=== PATIENT | female | born 1970 | race Caucasian/White ===

== ENCOUNTER 2018-09-19 08:37 | Emergency (ER) | payer BC, OTHER ==
--- NOTE | 2018-09-19 08:44 | UC ---
General HPI - HPI Summary HPI Summary: Patient is year old , who present today to the urgent care with for past days. Associated symptoms: No sick contacts . No skin rash. Denies any new soap, detergent , cosmetics, food or a possible exposure. Denies any fever, chills, cough chest pain or shortness of breath . No diaphoresis. Denies any abdominal pain , nausea or vomiting , diarrhea or constipation. There is no stridor, grunting or audible wheezing drooling, chest retraction or dehydration. Denies any conjunctival redness, irritation, increased lacrimation. Denies any grittiness Denies any radicular symptoms, numbness , tingling , incontinence, saddle anesthesia , motor or sensory disturbance. Patient tried over the counter medication without much relief. - History of Current Complaint Stated Complaint: COLD SYMP Time Seen by Provider: 09/19/18 08:40 Hx Obtained From: Patient Hx Last Menstrual Period: 10/04/16 - Allergy/Home Medications Allergies/Adverse Reactions: Allergies Allergy/AdvReac Type Severity Reaction Status Date / Time MS Sulfa Antibiotics Allergy Anaphylatic Verified 12/18/17 10:52 [Sulfa Antibiotics] Shock PMH/Surg Hx/FS Hx/Imm Hx Other History Of: Negative For: Anticoagulant Therapy - Surgical History Surgical History: Yes Surgery Procedure, Year, and Place: TONSILLECTOMY. PRECANCEROUS GROWTH ON HIP REMOVED AGE 16 - Family History Known Family History: Positive: None, Other - NONCONTIBUTORY - Social History Alcohol Use: None Alcohol Amount: former etoh overuse, "no addiction" per pt. Substance Use Type: None Smoking Status (MU): Current Every Day Smoker Type: Cigarettes Amount Used/How Often: 1/2 PPD - Immunization History Most Recent Tetanus Shot: <5 YEARS ( OF 08/13/15) Physical Exam - Summary Physical Exam Summary: Physical Exam: Const: Appears well. No signs of apparent distress present. Alert and oriented x 3. Musculo: Walks with a normal gait. Head/Face: Atraumatic, normocephalic on inspection. Eyes: EOMI and PERRLA in both eyes. Conjunctivae clear. No discharge noted ENT: Hearing normal, TM normal appearing bilaterally, non bulging , non erythematous . No tenderness on palpation / manipulation of Tragus. No mastoid tenderness. No tenderness to palpation on maxillary and frontal sinus. No pharyngeal erythema or exudates . Uvula is midline. No cervical or submandibular lymphadenopathy noted. Respiratory: Respirations are unlabored. Lungs clear to auscultation bilaterally, no wheezing , rhonchi or rales noted . CVS: Regular rate and Rhythm, S1S2 normal , no murmurs identified. Extremities: Peripheral circulation is grossly normal. Pulses 2+ Abdomen : Soft non tender , nondistended , Bowel sounds present . No guarding , rebound tenderness or rigidity noted. Skin: No lesions or rash located on the upper extremities or on the lower extremities. Neuro: Cranial nerves II to XII intact, motor and sensory intact. DTR Intact bilaterally. Mood is normal. Affect is normal. Course/Dx - Course Course Of Treatment: During the visit today, we obtained . We discussed the findings and further plan. I will prescribe the medication to the pharmacy . Patient expressed understanding . Discharge - Discharge Plan Referrals: Jocelyn Bonds MD [Primary Care Provider] - Additional Instructions: Please start taking the medication as prescribed to the pharmacy . Follow up with your primary care doctor in 2 days. Please follow up with .. for the consult Patients blood pressure slightly high in Urgent care today , plan follow up with PCP for better control Return to Urgent care / ER if symptoms get worse.
--- OUTSIDE RECORDS SUMMARY | 2018-09-19 08:44 | XMS REPORT | Continuity of Care Document ---
:1970 External Reference #:[id number] Author Name Willa Guy Care Team Providers Name Role Phone Jocelyn Bonds MD Primary Care Physician Unavailable Payers Date Identification Numbers Payment Provider Subscriber Onset: 2018 Policy Number: [id number] [facility] PayID: [id number] [address] [address] [place] [address] Expires: 2015 PayID: [id number] [facility] [address] [address] [place] [address] Effective: 2015 Policy Number: Cont: [facility] [id number] [facility] [place]: [id number] [id number] [facility] PayID: [id number] [place] [address] Expires: 07/05/2018 Policy Number: [id number] [facility] Ppo/Epo Toro Chu PayID: [id number] [address] [place] [address] Advance Directives Description No Information Available Problems Date Description Provider Status Onset: 07/31/2015 Bipolar disorder Anna Etienne NP Active Onset: 07/31/2015 Tobacco user Anna Etienne NP Active Onset: 09/14/2018 Binge drinker Jocelyn Bonds M.D. Active Onset: 07/31/2015 Alcohol abuse Anna Etienne NP Inactive Inactive: 09/14/2018 Family History Date Family Member(s) Observation Comments Father Aortic Aneurysm 80 Mother Depression 80 Siblings 1 Sister. Eating disorder. 50 Social History Type Date Description Comments Sex Unknown Marital Status Lives With Alone Occupation [employer] ETOH Use Rarely consumes Was drinking in alcohol excess, stopped in December 2015 Recreational Drug Use Denies Drug Use Tobacco Use Start: Unknown Patient is a current Quits for short smoker, smokes every periods, currently day smoking 10 cigarettes daily. Smoking Status Reviewed: 09/14/18 Patient is a current Quits for short smoker, smokes every periods, currently day smoking 10 cigarettes daily. Exercise Type/Frequency Exercises regularly Daily hiking with her dog. Allergies, Adverse Reactions, Alerts Date Description Reaction Status Severity Comments 07/31/2015 Sulfa Antibiotics Anaphylaxis Active Severe Medications Medication Date Status Form Strength Qnty SIG Indications Ordering Provider Nicotine Step 2 09/15/19 Active Patches 14mg/24HR 30uni once a day F17.210 Jocelyn 19 24HR esequiel Bonds M.D. Nicotine 09/15/19 Active Patches 7mg/24HR 28uni once a day F17.210 Jocelyn Transdermal 19 24HR Prem Alonso Step 3 MShyam Nicotine 08/02/19 Active Patches 7mg/24HR 14uni One patch Anna Transdermal 19 24HR ts daily for TALAT Etienne System Step 3 two weeks. Lorazepam 06/07/20 Active Tablets 0.5mg 30tab One tablet Anna 18 s once daily TALAT Etienne as needed Lamotrigine 03/24/20 Active Tablets 200mg 90tab take one Anna 18 s tablet by TALAT Etienne mouth once daily Thumb Splint 10/15/19 Active Misc 1unit thumb M79.644 Anna 18 s spica for TALAT Etienne right hand, wear during the day Aspir-81 Active Tablets 81mg 1 by mouth Unknown 00 DR every day Oxcarbazepine Active Tablets 150mg 1 tabs by Unknown 00 mouth every morning bid Vitamin B Active Tablets 1 by mouth Unknown Complex 00 every day Quetiapine Active Tablets 50mg 30tab One tablet Anna Fumarate 00 s QHS TALAT Etienne Gabapentin Active Capsules 300mg Take 2 Unknown 00 Capsules By Mouth Two Times Daily Nicotine 06/07/20 Hx Patches 14mg/24HR 14uni one patch Anna 18 - 24HR ts daily for TALAT Etienne 06/21/20 2 weeks 18 Nicotine Step 3 06/07/20 Hx Patches 7mg/24HR 14uni one patch Anna 18 - 24HR ts once daily TALAT Etienne 07/05/20 for two 18 weeks Ondansetron 04/30/20 Hx Tablets 8mg 20tab one tablet Anna 18 - Dispers s every 12 TALAT Etienne 05/05/20 hours as 18 needed. Nicotine 04/30/20 Hx Patches 21mg/24HR 28uni one patch Anna 18 - 24HR ts daily x 6 TALAT Etienne 06/07/20 weeks 18 Ondansetron 04/29/20 Hx Tablets 4mg 4tabs dissolve Anna 18 - Dispers one tablet TALAT Etienne 04/30/20 orally 18 every 8 hours as needed for nausea. Nicotine Step 3 12/03/19 Hx Patches 7mg/24HR 14uni One patch Anna 18 - 24HR ts once daily TALAT Etienne 04/30/20 for two 18 weeks Naproxen 10/15/19 Hx Tablets 500mg 30tab 1 tablet M54.9 Anna 18 - s with food TALAT Etienne 09/15/19 by mouth 19 twice a day Cipro 10/02/19 Hx Tablets 250mg 14tab one by Emilia 18 - s nouth Varn, 10/09/19 twice N.P. 18 daily for 7 days Eq Nicotine 08/15/19 Hx Patches 14mg/24HR 28uni Apply One Anna 18 - 24HR ts Patch TALAT Etienne 08/02/19 Topically 19 Once Daily For 6 Weeks Nicotine Step 2 05/12/20 Hx Patches 14mg/24HR 30uni one patch Anna 17 - 24HR ts daily x 6 TALAT Etienne 12/03/19 weeks 18 Nicotine 04/16/20 Hx Patches 21mg/24HR 28uni one patch Anna 17 - 24HR ts daily x 6 TALAT Etienne 05/12/20 weeks 17 Doxycycline 11/29/19 Hx Capsules 100mg 42cap si bid A69.20 Anna Monohydrate 17 - s x 21 days TALAT Etienne 12/23/19 17 Tramadol HCL 11/14/19 Hx Tablets 50mg 15tab 1-2 M79.1 Anna 17 - s tablets TALAT Etienne 09/15/19 every day 19 as needed for pain. Nicotine Step 2 08/13/19 Hx Patches 14mg/24HR 42uni one patch Anna 17 - 24HR ts daily x 6 Jaimie, PEDICURIST 04/16/20 weeks 17 Nicotine Step 3 08/13/19 Hx Patches 7mg/24HR 14uni one patch Anna 17 - 24HR ts daily x 2 TALAT Etienne 04/16/20 weeks 17 (after completing 14mg dose) Cyclobenzaprine 07/31/19 Hx Tablets 5mg 30tab take one Anna HCL 16 - s tablet by TALAT Etienne 07/30/19 mouth 17 every 8 hours prn. may take a second tablet if first not effetive. Chantix Starting 07/31/19 Hx Tablets 0.5mg X QS one 0.5 mg Z72.0 Anna Month Stephen 16 - 11 & 1 mg tab every TALAT Etienne 07/30/19 X 42 day for 3 17 days, one 0.5 mg tab twice a day for 4 days, one 1 mg tab bid every day after Vitamin D Hx Capsules 2000Unit take 1 by Unknown 00 - mouth a 09/15/19 day 19 Sertraline HCL Hx Tablets 50mg 1 by mouth Unknown 00 - every day 07/30/19 17 Metaxalone Hx Tablets 800mg take 1 Anna 00 - tablet 2 TALAT Etienne 07/31/19 times a 16 day as needed Lorazepam Hx Tablets 0.5mg 1 every 4 Unknown 00 - hours as Unknown needed anxiety Zolpidem Hx Tablets 10mg 1 tab by Unknown Tartrate 00 - mouth 09/15/19 every 19 night at bedtime as needed Lysine Hx Capsules 500mg 1 by mouth Unknown 00 - every day Unknown Ibuprofen Hx Tablets 600mg three Unknown 00 - times a 09/15/19 day 19 Medications Administered in Office Medication Date Status Form Strength Qnty SIG Indications Ordering Provider PPD Administered Injection Nurse Visit 8 A LIVAN Administered Injection AnnaGifty Horne NP Administered Injection Nurse Visit 5 C Immunizations Description No Information Available Vital Signs Date Vital Result Comment 09/14/2018 12:05pm Height 63.5 inches 5'3.50" Weight 163.00 lb Heart Rate 76 /min BP Systolic Sitting 108 mmHg BP Diastolic Sitting 73 mmHg Body Temperature 99.0 F O2 % BldC Oximetry 98 % BMI (Body Mass Index) 28.4 kg/m2 04/30/2018 10:27am Height 63.5 inches 5'3.50" Weight 154.00 lb Heart Rate 87 /min BP Systolic 113 mmHg BP Diastolic 77 mmHg Body Temperature 98.2 F O2 % BldC Oximetry 99 % BMI (Body Mass Index) 26.8 kg/m2 10/14/2017 11:22am Height 63.5 inches 5'3.50" Weight 149.25 lb Heart Rate 103 /min BP Systolic 122 mmHg BP Diastolic 82 mmHg Body Temperature 98.4 F O2 % BldC Oximetry 98 % BMI (Body Mass Index) 26.0 kg/m2 07/29/2017 8:43am Heart Rate 84 /min Respiratory Rate 16 /min Body Temperature 98.8 F 07/21/2017 10:38am Heart Rate 84 /min BP Systolic 100 mmHg BP Diastolic 70 mmHg Respiratory Rate 16 /min 01/07/2017 3:01pm Height 63.5 inches 5'3.50" Weight 155.00 lb Heart Rate 78 /min BP Systolic 106 mmHg BP Diastolic 70 mmHg Respiratory Rate 16 /min Body Temperature 98.7 F BMI (Body Mass Index) 27.0 kg/m2 11/28/2016 4:23pm Weight 158.50 lb Heart Rate 79 /min BP Systolic 120 mmHg BP Diastolic 80 mmHg Body Temperature 97.5 F O2 % BldC Oximetry 98 % 11/13/2016 9:03am Weight 162.00 lb Heart Rate 82 /min BP Systolic Sitting 112 mmHg BP Diastolic Sitting 80 mmHg Body Temperature 98.1 F O2 % BldC Oximetry 99 % 07/30/2016 1:16pm Height 63.5 inches 5'3.50" Weight 163.00 lb Heart Rate 88 /min BP Systolic 104 mmHg BP Diastolic 68 mmHg Body Temperature 99.0 F O2 % BldC Oximetry 97 % BMI (Body Mass Index) 28.4 kg/m2 07/31/2015 10:55am Weight 163.00 lb Heart Rate 92 /min BP Systolic Sitting 110 mmHg BP Diastolic Sitting 66 mmHg Respiratory Rate 15 /min Body Temperature 99.2 F O2 % BldC Oximetry 98 % Results Test Date Facility Test Result H/L Range Note Urine Culture And 10/02/2017 [facility] Urine Culture SEE RESULT [address] [place] [address] [phone] Lipid Profile 10/02/2017 [facility] Triglycerides 65 mg/dL 2 (Trig/Chol/HDL) [address] [place] [address] [phone] Cholesterol 183 mg/dL 3 HDL Cholesterol 75.1 mg/dL 4 LDL Cholesterol 95 mg/dL 5 Comp Metabolic Panel 10/02/2017 [facility] Sodium 138 mmol/L Low 139-[address] [place] [address] [phone] Potassium 4.1 mmol/L N 3.5-5.0 Chloride 104 mmol/L N 101-111 Co2 Carbon Dioxide 26 mmol/L N 22-32 Anion Gap 8 mmol/L N 2-11 Glucose 88 mg/dL N 70-100 Blood Urea Nitrogen 9 mg/dL N 6-24 Creatinine 0.77 mg/dL N 0.51-0.95 BUN/Creatinine Ratio 11.7 N 8-20 Calcium 9.3 mg/dL N 8.6-10.3 Total Protein 6.7 g/dL N 6.4-8.9 Albumin 4.6 g/dL N 3.2-5.2 Globulin 2.1 g/dL N 2-4 Albumin/Globulin Ratio 2.2 N 1-3 Total Bilirubin 0.80 mg/dL N 0.2-1.0 Alkaline Phosphatase 46 U/L N 34-104 Alt 12 U/L N 7-52 Ast 16 U/L N 13-39 Egfr Non- 80.4 >60 Egfr 103.3 >60 6 CBC Auto Diff 11/13/2016 [facility] White Blood 7.7 10^3/uL N 3.5-10.[address] [place] [address] [phone] Red Blood Count 4.16 10^6/uL N 4.0-5.4 Hemoglobin 13.7 g/dL N 12.0-16.0 Hematocrit 41 % N 35-47 Mean Corpuscular Volume 98 fL High 80-97 Mean Corpuscular Hemoglobin 33 pg High 27-31 Mean Corpuscular HGB Conc 34 g/dL N 31-36 Red Cell Distribution Width 13 % N 10.5-15 Platelet Count 202 10^3/uL N 150-450 Mean Platelet Volume 10 um3 N 7.4-10.4 Abs Neutrophils 5.1 10^3/uL N 1.5-7.7 Abs Lymphocytes 1.8 10^3/uL N 1.0-4.8 Abs Monocytes 0.4 10^3/uL N 0-0.8 Abs Eosinophils 0.3 10^3/uL N 0-0.6 Abs Basophils 0 10^3/uL N 0-0.2 Abs Nucleated RBC 0 10^3/uL N Granulocyte % 66.6 % N 38-83 Lymphocyte % 23.8 % Low 25-47 Monocyte % 5.1 % N 1-9 Eosinophil % 3.9 % N 0-6 Basophil % 0.6 % N 0-2 Nucleated Red Blood Cells % 0 N Comp Metabolic Panel 11/13/2016 [facility] Sodium 137 mmol/L N 133-[address] [place] [address] [phone] Potassium 4.4 mmol/L N 3.5-5.0 Chloride 104 mmol/L N 101-111 Co2 Carbon Dioxide 28 mmol/L N 22-32 Anion Gap 5 mmol/L N 2-11 Glucose 95 mg/dL N 70-100 Blood Urea Nitrogen 10 mg/dL N 6-24 Creatinine 0.75 mg/dL N 0.51-0.95 BUN/Creatinine Ratio 13.3 N 8-20 Calcium 9.2 mg/dL N 8.6-10.3 Total Protein 6.2 g/dL Low 6.4-8.9 Albumin 4.3 g/dL N 3.2-5.2 Globulin 1.9 g/dL Low 2-4 Albumin/Globulin Ratio 2.3 N 1-3 Total Bilirubin 0.80 mg/dL N 0.2-1.0 Alkaline Phosphatase 47 U/L N 34-104 Alt 10 U/L N 7-52 Ast 13 U/L N 13-39 Egfr Non- 83.2 N >60 Egfr 107.0 N >60 7 Laboratory test 11/13/2016 [facility] TSH (Thyroid 0.87 mcIU/mL N 0.34-5.[address] Stim Horm) [place] [address] [phone] Tick-Borne 11/13/2016 [facility] Babesia Negative N Negative Panel PCR Blood [address] [place] [address] [phone] Babesia ducani Negative N Negative Babesia divergens/Mo-1 Negative N Negative 8 Anaplasma phagocytophilum Negative N Negative Ehrlichia chaffeensis Negative N Negative Ehrlichia ewingii/canis Negative N Negative Ehrlichia muris-like Negative N Negative 9 B. miyamotoi PCR, B Negative N Negative 10 Laboratory test 11/13/2016 [facility] Creatine 38 U/L N 10- [address] Kinase(CK) [place] [address] [phone] Erythrocyte Sed Rate 7 mm/Hr N 0-14 11 C Reactive Protein < 1.00 mg/L N < 5.00 12 Monospot Negative N Negative 13 Lyme Disease Serology Negative N Negative 14 CBC Auto Diff 07/30/2016 [facility] White Blood 5.5 10^3/uL N 3.5-10.[address] [place] [address] [phone] Red Blood Count 4.04 10^6/uL N 4.0-5.4 Hemoglobin 13.3 g/dL N 12.0-16.0 Hematocrit 40 % N 35-47 Mean Corpuscular Volume 98 fL High 80-97 Mean Corpuscular Hemoglobin 33 pg High 27-31 Mean Corpuscular HGB Conc 34 g/dL N 31-36 Red Cell Distribution Width 13 % N 10.5-15 Platelet Count 220 10^3/uL N 150-450 Mean Platelet Volume 9 um3 N 7.4-10.4 Abs Neutrophils 3.3 10^3/uL N 1.5-7.7 Abs Lymphocytes 1.6 10^3/uL N 1.0-4.8 Abs Monocytes 0.4 10^3/uL N 0-0.8 Abs Eosinophils 0.3 10^3/uL N 0-0.6 Abs Basophils 0 10^3/uL N 0-0.2 Abs Nucleated RBC 0 10^3/uL N Granulocyte % 59.4 % N 38-83 Lymphocyte % 28.4 % N 25-47 Monocyte % 6.5 % N 1-9 Eosinophil % 4.8 % N 0-6 Basophil % 0.9 % N 0-2 Nucleated Red Blood Cells % 0 N Laboratory test 07/30/2016 [facility] Glucose 95 mg/dL N 70- 100 [address] [place] [address] [phone] Lipid Profile 07/30/2016 [facility] Triglycerides 46 mg/dL N 16 (Trig/Chol/HDL) [address] [place] [address] [phone] Cholesterol 238 mg/dL N 17 HDL Cholesterol 62.7 mg/dL N 18 LDL Cholesterol 166 mg/dL N 19 Laboratory test 11/26/2015 [facility] HCG 94.93 mIU/ mL N [address] [place] [address] [phone] Comp Metabolic 11/26/2015 [facility] Sodium 136 mmol/L N 133- [address] [place] [address] [phone] Potassium 3.8 mmol/L N 3.5-5.0 Chloride 104 mmol/L N 101-111 Co2 Carbon Dioxide 27 mmol/L N 22-32 Anion Gap 5 mmol/L N 2-11 Glucose 92 mg/dL N 70-100 Blood Urea Nitrogen 13 mg/dL N 6-24 Creatinine 1.02 mg/dL High 0.51-0.95 BUN/Creatinine Ratio 12.7 N 8-20 Calcium 9.3 mg/dL N 8.6-10.3 Total Protein 6.3 g/dL Low 6.4-8.9 Albumin 4.2 g/dL N 3.2-5.2 Globulin 2.1 g/dL N 2-4 Albumin/Globulin Ratio 2.0 N 1-3 Total Bilirubin 0.40 mg/dL N 0.2-1.0 Alkaline Phosphatase 54 U/L N 34-104 Alt 8 U/L N 7-52 Ast 12 U/L Low 13-39 Egfr Non- 58.6 N >60 Egfr 75.4 N >60 21 Laboratory test 11/26/2015 [facility] Lactic Acid 0.5 mmol/L N 0.5-2.0 [address] [place] [address] [phone] CBC Auto Diff 11/26/2015 [facility] White Blood 6.9 10^3/uL N 3.5-10.[address] [place] [place] [address] [phone] Red Blood Count 3.61 10^6/uL Low 4.0-5.4 Hemoglobin 11.7 g/dL Low 12.0-16.0 Hematocrit 36 % N 35-47 Mean Corpuscular Volume 100 fL High 80-97 Mean Corpuscular Hemoglobin 33 pg High 27-31 Mean Corpuscular HGB Conc 32 g/dL N 31-36 Red Cell Distribution Width 14 % N 10.5-15 Platelet Count 209 10^3/uL N 150-450 Mean Platelet Volume 10 um3 N 7.4-10.4 Abs Neutrophils 4.0 10^3/uL N 1.5-7.7 Abs Lymphocytes 2.0 10^3/uL N 1.0-4.8 Abs Monocytes 0.4 10^3/uL N 0-0.8 Abs Eosinophils 0.4 10^3/uL N 0-0.6 Abs Basophils 0.1 10^3/uL N 0-0.2 Abs Nucleated RBC 0 10^3/uL N Granulocyte % 57.5 % N 38-83 Lymphocyte % 29.3 % N 25-47 Monocyte % 5.7 % N 1-9 Eosinophil % 6.2 % High 0-6 Basophil % 1.3 % N 0-2 Nucleated Red Blood Cells % 0 N Laboratory test 11/26/2015 [facility] Partial 29.3 seconds N 26.0-36.[address] [place] [address] [place] [address] PTT [phone] Inr/Protime 11/26/2015 [facility] Inr 0.89 N 0.89-1.[address] [place] [address] [phone] Urinalysis 11/26/2015 [facility] Urine Color Straw N Profile [address] [place] [address] [phone] Urine Appearance Clear N Urine Specific [place] 1.005 Low 1.010-1.030 Urine pH 7.0 N 5-9 Urine Urobilinogen Negative N Negative Urine Ketones Negative N Negative Urine Protein Negative N Negative Urine Leukocytes Negative N Negative Urine Blood 3+ Abnormal Negative Urine Nitrite Negative N Negative Urine Bilirubin Negative N Negative Urine Glucose Negative N Negative Urine White Blood Cell Trace(0-5/hpf) N Absent Urine Red Blood Cell 3+(>10/hpf) Abnormal Absent Urine Bacteria Absent N Absent Urine Squamous Epithelial Cell Present Abnormal Absent Laboratory test 11/26/2015 [facility] Gardnerella/Yeast: SEE RESULT [address] [place] [address] [phone] 1 SEE RESULT BELOW Name: TORO CHU : [address]: Anna Etienne NP Acct: [id number] Unit: [id number] AGE: 46 Location: [facility] Re10/02/17 SEX: F Status: REG REF SPEC: [id number] CARMEN: 10/02/[address] [facility] [address]: Jocelyn Bonds MD REQ: [id number] RECD: 10/02/17 STATUS: COMP _ SOURCE: URINE SPDESC: ORDERED: Urine Culture QUERIES: Urine Source: Clean Catch Procedure Result Reported Site Urine Culture Final 10/03/17- 1424 ML No Growth (<1,000 CFU/mL) * ML - Main Lab . END OF REPORT DEPARTMENT OF PATHOLOGY, [address] [place] [address] Bi Hurt M.D. Director [facility] # [id number] 2 Desirable: <150 Borderline High: 150-199 High: 200-499 Very High: >500 3 Desirable: <200 Borderline High: 200-239 High: >239 4 Low: <40 Desirable: 40-60 High: >60 5 Desirable: <100 Near Optimal: 100-129 Borderline High: 130-159 High: 160-189 Very High: >189 6 Because ethnic data is not always readily available, this report includes an eGFR for both -Americans and non- Americans. The National Kidney Disease Education Program (NKDEP) does not endorse the use of the MDRD equation for patients that are not between the ages of 18 and 70, are , have extremes of body size, muscle mass, or nutritional status, or are non- or non-. According to the National Kidney Foundation, irrespective of diagnosis, the stage of the disease is based on the level of kidney function: Stage Description GFR(mL/min/1.73 m(2)) 1 Kidney damage with normal or decreased GFR 90 2 Kidney damage with mild decrease in GFR 60-89 3 Moderate decrease in GFR 30-59 4 Severe decrease in GFR 15-29 5 Kidney failure <15 (or dialysis) 7 Because ethnic data is not always readily available, this report includes an eGFR for both -Americans and non- Americans. The National Kidney Disease Education Program (NKDEP) does not endorse the use of the MDRD equation for patients that are not between the ages of 18 and 70, are , have extremes of body size, muscle mass, or nutritional status, or are non- or non-. According to the National Kidney Foundation, irrespective of diagnosis, the stage of the disease is based on the level of kidney function: Stage Description GFR(mL/min/1.73 m(2)) 1 Kidney damage with normal or decreased GFR 90 2 Kidney damage with mild decrease in GFR 60-89 3 Moderate decrease in GFR 30-59 4 Severe decrease in GFR 15-29 5 Kidney failure <15 (or dialysis) 8 ADDITIONAL INFORMATION This test was developed and its performance characteristics determined by [facility] in a manner consistent with CLIA requirements. This test has not been cleared or approved by the U.S. Food and Drug Administration. 9 ADDITIONAL INFORMATION This test was developed and its performance characteristics determined by [facility] in a manner consistent with CLIA requirements. This test has not been cleared or approved by the U.S. Food and Drug Administration. 10 ADDITIONAL INFORMATION This test was developed and its performance characteristics determined by [facility] in a manner consistent with CLIA requirements. This test has not been cleared or approved by the U.S. Food and Drug Administration. Test Performed by: [facility] - [address] [address] 11 Would you like an EBV if Monospot is Negative?: N 12 Acute inflammation: >10.00 13 Would you like an EBV if Monospot is Negative?: N 14 Serologic response to B. burgdorferi infection is not detected, but cannot rule out early infection during which low or undetectable antibody levels to B. burgdorferi may be present. If clinically indicated, a new serum specimen should be submitted in 7-14 days. Test Performed by: [facility] - [facility] [address] [place] [address] 15 FASTING 10 HOUR 16 Desirable <150 Borderline high 150-199 High 200-499 Very High >500 17 Desirable <200 Borderline high 200-239 High >239 18 Low <40 Desirable: 40-60 High: >60 19 Desirable: <100 mg/dL Near Optimal: 100-129 mg/dL Borderline High: 130-159 mg/dL High: 160-189 mg/dL Very High: >189 mg/dL 20 <5.0 Negative 5.0 - 25.0 Indeterminate (Repeat testing recommended after 72 hours) >25.0 Positive Perimenopausal women can display HCG levels of up to 20 mIU/mL 21 Because ethnic data is not always readily available, this report includes an eGFR for both -Americans and non- Americans. The National Kidney Disease Education Program (NKDEP) does not endorse the use of the MDRD equation for patients that are not between the ages of 18 and 70, are , have extremes of body size, muscle mass, or nutritional status, or are non- or non-. According to the National Kidney Foundation, irrespective of diagnosis, the stage of the disease is based on the level of kidney function: Stage Description GFR(mL/min/1.73 m(2)) 1 Kidney damage with normal or decreased GFR 90 2 Kidney damage with mild decrease in GFR 60-89 3 Moderate decrease in GFR 30-59 4 Severe decrease in GFR 15-29 5 Kidney failure <15 (or dialysis) 22 [facility] Severe Sepsis and Septic Shock Management Bundle Measure requires all lactic acids initially measuring >2.0 mmol/L be repeated. 23 SEE RESULT BELOW Name: TORO CHU : [address]: Arcenio Viera MD Acct: [id number] Unit: [id number] AGE: 44 Location: ED Re11/26/15 SEX: F Status: DEP ER SPEC: [id number] CARMEN: 11/26/15-[address] [facility] [address]: Arcneio Viera MD REQ: [id number] RECD: 11/27/15 STATUS: OMSAN SALOMON DR: Anna Etienne PEDICURIST _ SOURCE: VAGINAL SPDESC: ORDERED: Sandra,Yeast DNA Procedure Result Reported Site Gardnerella/Yeast: Vaginal DNA Final 11/27/15- 920 ML Organism 1 Negative Gardnerella Organism 2 Negative Diamond The presence of G. vaginalis, although suggestive, is not diagnostic for bacterial vaginosis. Results should be interpreted in conjuction with other clinical and laboratory data available. Women with vaginal discharge should be evaluated for risk factors of cervicitis and pelvic inflammatory disease, toxic shock syndrome (S.aureus), and if present, evaluated for organisms not included in this assay such as N. gonorrhoeae, C. trachomatis, Mobiluncus, Mycoplasma and/or Prevotella. Mixed infections may occur. The performance of this test on patient specimens collected during or immediately after antimicrobial therapy is unknown. The presence or absence of Diamond species, or G. vaginalis cannot be used as a test for therapeutic success or failure. * ML - MAIN LAB ([facility]) . END OF REPORT * ML=Testing performed at Main Lab DEPARTMENT OF PATHOLOGY, [address] [place] [address] Bi Hurt M.D. Director [facility] # [id number] Procedures Date Code Description Status 10/23/2017 [id number] Mammogram Completed 07/21/2017 [id number] Excision Benign Lesion Incl Diameter 1.1 - 2.0 CM Completed Scalp,Neck,Hand 01/22/2015 [id number] Mammogram Completed Encounters Type Date Location Provider Dx Diagnosis Office Visit 04/30/2018 10:20a [facility] Internal Medicine - Anna Etienne NP R11.0 Nausea [place] F17.210 Nicotine dependence, cigarettes, uncomplicated Office Visit 10/14/2017 11:00a [facility] Internal Anna Etienne, Z00.00 [facility] - PEDICURIST general adult [place] medical exam w/o abnormal findings M54.9 Dorsalgia, unspecified E78.5 Hyperlipidemia, unspecified Z12.31 Encntr screen mammogram for malignant neoplasm of breast M79.644 Pain in right finger(s) Z72.0 Tobacco use Office Visit 01/07/2017 [facility]. L72.3 Sebaceous cyst 3:00p [facility] Office Visit 11/28/2016 [facility] Moo Etienne NP A69.20 Lyme disease, 4:20p Medicine - unspecified [place] Office Visit 11/13/2016 [facility] Internal Anna Etienne NP R53.83 Other fatigue 9:00a [facility] M79.1 Myalgia R22.9 Localized swelling, mass and lump, unspecified Office Visit 07/30/2016 1:00p [facility] Internal Anna Etienne, Z00.00 Encntr for Medicine - PEDICURIST general adult [place] medical exam w/o abnormal findings E78.5 Hyperlipidemia, unspecified R22.9 Localized swelling, mass and lump, unspecified Office Visit 07/31/2015 11:00a [facility] Internal Anna Etienne, R22.9 Localized Medicine - PEDICURIST swelling, mass and [place] lump, unspecified F17.210 Nicotine dependence, cigarettes, uncomplicated M54.5 Low back pain R05 Cough Plan of Treatment Future Appointment(s):11/08/2018 3:00 pm - Anna Etienne NP at [facility]09/14/2018 - Jocelyn Bonds M.D.J06.9 Acute upper respiratory infection, unspecifiedComments:use claritin once a day to help with congestion , increase zoxeftP81.210 Nicotine dependence, cigarettes, uncomplicatedNew Medication:Nicotine Step 2 14 mg/24HR - once a dayNicotine Transdermal System Step 3 7 mg/24HR - once a dayF10.10 Alcohol abuse, uncomplicatedComments:You should consider outpatient alcohol rehabFollow up: annual physical in october with anna
--- OUTSIDE RECORDS SUMMARY | 2018-09-19 08:44 | XMS REPORT | Continuity of Care Document ---
:1970 External Reference #:[id number] Author Name Willa Guy Care Team Providers Name Role Phone Jocelyn Bonds MD Primary Care Physician Unavailable Payers Date Identification Numbers Payment Provider Subscriber Onset: 2018 Policy Number: [id number] [facility] PayID: [id number] [address] [address] [place] [address] Expires: 2015 PayID: [id number] [facility] [address] [address] [place] [address] Effective: 2015 Policy Number: Cont: [facility] [id number] Health [facility] Services Group Number: [id number] [id number] [facility] PayID: [id number] [place] [address] Expires: 2018 Policy Number: [id number] [facility] Health Ins Ppo/Epo Toro Chu PayID: [id number] [address] [place] [address] Advance Directives Description No Information Available Problems [...] Marital Status 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 Urine Culture SEE RESULT [address] [place] [address] [phone] Lipid Profile 10/02/2017 [facility] Triglycerides 65 mg/dL 2 (Trig/Chol/HDL) [address] [place] [address] [phone] Cholesterol 183 mg/dL 3 HDL Cholesterol 75.1 mg/dL 4 LDL Cholesterol 95 mg/dL 5 Comp Metabolic Panel 10/02/2017 [facility] Sodium 138 mmol/L Low 139-[address] [place] [address] [phone] Potassium 4.1 mmol/L N 3.5-5.0 Chloride 104 [...] 103.3 >60 6 CBC Auto Diff 11/13/2016 [facility] White Blood 7.7 10^3/uL N 3.5-10.[address] [place] [address] [phone] Red Blood Count 4.16 10^6/uL N 4.0-5.4 [...] % 0 N Comp Metabolic Panel 11/13/2016 [facility] Sodium 137 mmol/L N 133-[address] [place] [address] [phone] Potassium 4.4 mmol/L N 3.5-5.0 Chloride 104 [...] 107.0 N >60 7 Laboratory test 11/13/2016 [facility] TSH (Thyroid 0.87 mcIU/mL N 0.34-5.[address] Stim Horm) [place] [address] [phone] Tick-Borne 11/13/2016 [facility] Babesia Negative N Negative Panel PCR Blood [address] [place] [address] [phone] Babesia ducani Negative N Negative Babesia divergens/Mo-1 Negative N Negative 8 Anaplasma phagocytophilum Negative N Negative Ehrlichia chaffeensis Negative N Negative Ehrlichia ewingii/canis Negative N Negative Ehrlichia muris-like Negative N Negative 9 B. miyamotoi PCR, B Negative N Negative 10 Laboratory test 11/13/2016 [facility] Creatine 38 U/L N 10- [address] Kinase(CK) [place] [address] [phone] Erythrocyte Sed Rate 7 mm/Hr N 0-14 11 C Reactive Protein < 1.00 mg/L N < 5.00 12 Monospot Negative N Negative 13 Lyme Disease Serology Negative N Negative 14 CBC Auto Diff 07/30/2016 [facility] White Blood 5.5 10^3/uL N 3.5-10.[address] [place] [address] [phone] Red Blood Count 4.04 10^6/uL N 4.0-5.4 [...] Cells % 0 N Laboratory test 07/30/2016 [facility] Glucose 95 mg/dL N 70- 100 [address] [place] [address] [phone] Lipid Profile 07/30/2016 [facility] Triglycerides 46 mg/dL N 16 (Trig/Chol/HDL) [address] [place] [address] [phone] Cholesterol 238 mg/dL N 17 HDL Cholesterol 62.7 mg/dL N 18 LDL Cholesterol 166 mg/dL N 19 Laboratory test 11/26/2015 [facility] HCG 94.93 mIU/ mL N [address] [place] [address] [phone] Comp Metabolic 11/26/2015 [facility] Sodium 136 mmol/L N 133- [address] [place] [address] [phone] Potassium 3.8 mmol/L N 3.5-5.0 Chloride 104 [...] 75.4 N >60 21 Laboratory test 11/26/2015 [facility] Lactic Acid 0.5 mmol/L N 0.5-2.0 [address] [place] [address] [phone] CBC Auto Diff 11/26/2015 [facility] White Blood 6.9 10^3/uL N 3.5-10.[address] [place] [address] [phone] Red Blood Count 3.61 10^6/uL Low 4.0-5.4 [...] Cells % 0 N Laboratory test 11/26/2015 [facility] Partial 29.3 seconds N 26.0-36.[address] [place] [address] [place] [address] [phone] Inr/Protime 11/26/2015 [facility] Inr 0.89 N 0.89-1.[address] [place] [address] [phone] Urinalysis 11/26/2015 [facility] Urine Color Straw N Profile [address] [place] [address] [phone] Urine Appearance Clear N Urine Specific [place] 1.005 Low 1.010-1.030 Urine pH 7.0 N [...] Cell Present Abnormal Absent Laboratory test 11/26/2015 [facility] Gardnerella/Yeast: SEE RESULT [address] [place] [address] [phone] 1 SEE RESULT BELOW Name: TORO CHU : [address]: Anna Etienne NP Acct: [id number] Unit: [id number] AGE: 46 Location: [facility] Re10/02/17 SEX: F Status: REG REF SPEC: [id number] CARMEN: 10/02/[address] [facility] [address]: Jocelyn Bonds MD REQ: [id number] RECD: 10/02/17 STATUS: COMP _ SOURCE: URINE SPDESC: ORDERED: Urine Culture QUERIES: Urine Source: Clean Catch Procedure Result Reported Site Urine Culture Final 10/03/17- 1424 ML No Growth (<1,000 CFU/mL) * ML - Main Lab . END OF REPORT DEPARTMENT OF PATHOLOGY, [address] [place] [address] Bi Hurt M.D. Director [facility] # [id number] 2 Desirable: <150 Borderline High: 150-199 High: [...] developed and its performance characteristics determined by [facility] in a manner consistent with CLIA requirements. This test has not been cleared or approved by the U.S. Food and Drug Administration. 9 ADDITIONAL INFORMATION This test was developed and its performance characteristics determined by [facility] in a manner consistent with CLIA requirements. This test has not been cleared or approved by the U.S. Food and Drug Administration. 10 ADDITIONAL INFORMATION This test was developed and its performance characteristics determined by [facility] in a manner consistent with CLIA requirements. This test has not been cleared or approved by the U.S. Food and Drug Administration. Test Performed by: [facility] - [address] [address] 11 Would you like an EBV if [...] submitted in 7-14 days. Test Performed by: [facility] - [facility] [address] [place] [address] 15 FASTING 10 HOUR 16 Desirable <150 [...] 5 Kidney failure <15 (or dialysis) 22 [facility] Severe Sepsis and Septic Shock Management Bundle Measure requires all lactic acids initially measuring >2.0 mmol/L be repeated. 23 SEE RESULT BELOW Name: TORO CHU : [address]: Arcenio Viera MD Acct: [id number] Unit: [id number] AGE: 44 Location: ED Re11/26/15 SEX: F Status: DEP ER SPEC: [id number] CARMEN: 11/26/15-2306 [facility] [address]: Arcenio Viera MD REQ: [id number] RECD: 11/27/15 STATUS: OSMAN SALOMON DR: Anna Etienne CHARGING BOARD OPERATOR _ SOURCE: VAGINAL SPDESC: ORDERED: Sandra,Yeast DNA [...] or failure. * ML - MAIN LAB ([facility]) . END OF REPORT * ML=Testing performed at Main Lab DEPARTMENT OF PATHOLOGY, [address] [place] [address] Bi Hurt M.D. Director [facility] # [id number] Procedures Date Code Description Status 10/23/2017 63288908 Mammogram Completed 07/21/2017 45900 Excision Benign Lesion Incl Diameter 1.1 - 2.0 CM Completed Scalp,Neck,Hand 01/22/2015 [id number] Mammogram Completed Encounters Type Date Location Provider Dx Diagnosis Office Visit 04/30/2018 10:20a [facility] Internal Medicine - Anna Etienne NP R11.0 Nausea [place] F17.210 Nicotine dependence, cigarettes, uncomplicated Office Visit 10/14/2017 11:00a [facility] Internal Anna Etienne, Z00.00 Encntr for Medicine - CHARGING BOARD OPERATOR general adult [place] medical exam w/o abnormal findings M54.9 Dorsalgia, unspecified E78.5 Hyperlipidemia, unspecified Z12.31 Encntr screen mammogram for malignant neoplasm of breast M79.644 Pain in right finger(s) Z72.0 Tobacco use Office Visit 01/07/2017 [facility]. 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 [place] medical exam w/o abnormal findings E78.5 Hyperlipidemia, unspecified R22.9 Localized swelling, mass and lump, unspecified Office Visit 07/31/2015 11:00a [facility] Internal Anna Etienne, R22.9 Localized Medicine - CHARGING BOARD OPERATOR swelling, mass and [place] lump, unspecified F17.210 Nicotine dependence, cigarettes, uncomplicated M54.5 Low back pain R05 Cough Plan of Treatment Future Appointment(s):11/08/2018 3:00 pm - Anna Etienne NP at [facility]09/14/2018 - Jocelyn Bonsd M.D.J06.9 Acute upper respiratory infection, unspecifiedComments:use claritin once a day to help with congestion , increase lyyvppL44.210 Nicotine dependence, cigarettes, uncomplicatedNew Medication:Nicotine Step 2 14 mg/24HR - once a dayNicotine Transdermal System Step 3 7 mg/24HR - once a dayF10.10 Alcohol abuse, uncomplicatedComments:You should consider outpatient alcohol rehabFollow up: annual physical in october with anna
== END 2018-09-19 08:54 | disposition left against medical advice (07) ==
LOC: UCEAST 08:37
DX: Z53.21 Procedure and treatment not carried out due to patient leaving prior to being seen by health care provider (principal)

== ENCOUNTER 2019-10-28 16:40 | Emergency (ER) | payer BC ==
--- OUTSIDE RECORDS SUMMARY | 2019-10-28 16:46 | XMS REPORT | Continuity of Care Document ---
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 Onset: 09/14/2018 Posttraumatic stress disorder Binh Etienne NP Onset: 11/08/2018 Social History Type Date Description Comments Sex Unknown Tobacco Use Start: Unknown End: Former Cigarette Smoker recently quite Unknown ETOH Use Rarely consumes alcohol Was drinking in excess, none as of November 2018 Recreational Drug Use Denies Drug Use Tobacco Use Start: Unknown End: Patient is a former Unknown smoker Smoking Status Reviewed: 10/21/19 Patient is a former smoker Exercise Type/Frequency Exercises regularly Daily hiking with her dog. Allergies, Adverse Reactions, Alerts Active Allergies Reaction Severity Comments Date Sulfa Antibiotics Anaphylaxis Severe 07/31/2015 Medications Active Medications SIG Qnty Indications Ordering Date Provider Nicotine Polacrilex Use 1 lozenge 144units F17.219 Elinor Sanz, 2019 every 1-2 hours EYELET CUTTER-Cde 4mg Lozenges as needed, try to reduce the total weekly number used over a 6 week period Esperanza 1 by mouth every 28tabs N93.0 Elinor Sanz, 10/21/2019 0.35mg Tablets day EYELET CUTTER-Cde GNP Nicotine Mini take one every 81units F17.210 Binh Etienne NP 01/10/2019 2mg 4-6 hours Lozenges Lorazepam one tablet once 30tabs Binh Etienne NP 06/07/2018 0.5mg daily as needed Tablets Lamotrigine take 1 tablet by 90tamitsy Etienne NP 03/24/2018 200mg mouth every day Tablets Aspir-81 1 by mouth every Unknown 81mg Tablets day Quetiapine Fumarate 1/2-1 tablet 30tabs Binh Etienne NP every night at 50mg Tablets bedtime as needed Gabapentin Take 2 Capsules Unknown 300mg By Mouth Two Capsules Times Daily Vitamin D-1000 take one Unknown Maximum Strength capsule/tablet daily by mouth 1000Unit Tablets Medications Administered in Office Medication SIG Qnty Indications Ordering Provider Date PPD Injection Nurse Visit A 07/28/2017 PPD Injection Binh Etienne NP 06/24/2017 PPD Injection Nurse Visit C 02/26/2015 Immunizations Description No Information Available Vital Signs Date Vital Result Comment 10/21/2019 9:01am Height 63.5 inches 5'3.50" Weight 156.00 lb Heart Rate 86 /min BP Systolic 116 mmHg BP Diastolic 78 mmHg O2 % BldC Oximetry 99 % BMI (Body Mass Index) 27.2 kg/m2 10/17/2019 11:02am Height 63.5 inches 5'3.50" Weight 156.00 lb Heart Rate 72 /min BP Systolic 112 mmHg BP Diastolic 73 mmHg O2 % BldC Oximetry 97 % BMI (Body Mass Index) 27.2 kg/m2 Last Menstrual Period [id number] Results Test Acquired Facility Test Result H/L Range Note Date HIV 1&2 p24 10/17/2019 [facility] HIV 4th Nonreactive Nonreactive Screen [address] [place] [address] [phone] Hepatitis C 10/17/2019 [facility] HCV Index 0.01 s/c Antibody [address] [place] [address] [phone] Hepatitis C Antibody Negative Negative Laboratory test 10/17/2019 [facility] Syphillis Igg Negative Negative finding [address] W/[place] [address] [phone] GC/Chlamydia 10/17/2019 [facility] GCCHL (SEE NOTE) 1 Amplified Rna [address] [place] [address] [phone] Chlamydia trachomatis Alicia Negative Negative Neisseria gonorrhoeae (GC) Alicia Negative Negative Cytology 06/10/2019 [facility] Cytology SEE RESULT BELOW [address] [place], [place] [id number] [phone] PDFReport SEE IMAGE 1 As with all diagnostic procedures, the laboratory results obtained should be used in conjunction with other clinical information available to the physician, including confirmation by another method, as applicable. 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 SPECIMEN(S) RECEIVED A. Ectocervical/Endocervical CYTOLOGY ADEQUACY Specimen Adequacy: Satisfactory of evaluation Transformation zone component identified CONTINUED ON NEXT PAGE DEPARTMENT OF PATHOLOGY, [facility] [place] [address] Bi Hurt M.D. Director [facility] # [id number] CYTOLOGY PATIENT INFORMATION Patient Information: HPV: High risk HPV RNA testing regardless of pap results. Actual Specimen Date: 06/10/19 LMP If Unknown: irregular Date of Last Specimen: 02/17/17 Other Pertinent History: IUD Signed by and Reported on: CAMPOS Arroyo(ASCP) [id number] This Pap test was evaluated with the assistance of the SocialKatyPrep Test Imaging System. Due to cytologic findings at the excavator backhoe operator microscope, comprehensive manual rescreening by a Corner Brace Block Machine Operator may be required. The Pap Smear is a screening test designed to aid in the detection of premalignant and malignant conditions of the uterine cervix. It is not a diagnostic procedure and should not be used as the sole means of detecting cervical cancer. Both false- positive and false- negative reports do occur. Depending on your risk status, a Pap smear should be obtained and evaluated every 1-3 years. END OF REPORT DEPARTMENT OF PATHOLOGY, [facility] [address] [place], [place] [address] Bi Hurt M.D. Director [facility] # [id number] Procedures Date Code Description Status 10/21/2019 47037 Remove Intrauterine Device Completed 10/18/2019 [id number] Mammogram Completed 10/23/2017 [id number] Mammogram Completed 01/22/2015 [id number] Mammogram Completed Medical Devices Description No Information Available Encounters Type Date Location Provider Dx Diagnosis Office Visit 10/21/2019 [facility] Elinor Dueñaskins, N93.0 Postcoital and 9:00a [facility] EYELET CUTTER-Cde contact bleeding F17.219 Nicotine dependence, cigarettes, w unsp disorders Office Visit 10/17/2019 11:00a [facility] Elinor Umu, N93.0 Postcoital and [facility] EYELET CUTTER-Cde contact bleeding F17.219 Nicotine dependence, cigarettes, w unsp disorders Z12.31 Encntr screen mammogram for malignant neoplasm of breast Z11.3 Encntr screen for infections w sexl mode of transmiss Assessments Date Code Description Provider 10/21/2019 N93.0 Postcoital and contact bleeding Elinor Umu, EYELET CUTTER-Cde 10/21/2019 F17.219 Nicotine dependence, cigarettes, with Elinor Umu, EYELET CUTTER- Cde unspecified nicotine-induced disorders 10/17/2019 N93.0 Postcoital and contact bleeding Elinor Umu, EYELET CUTTER-Cde 10/17/2019 F17.219 Nicotine dependence, cigarettes, with Elinor Umu, EYELET CUTTER- Cde unspecified nicotine-induced disorders 10/17/2019 Z12.31 Encounter for screening mammogram for Elinor Umu, EYELET CUTTER- Cde malignant neoplasm of breast 10/17/2019 Z11.3 Encounter for screening for infections with Elinor Umu, EYELET CUTTER-Cde a predominantly sexual mode of transmission Plan of Treatment 10/21/2019 - Elinor Umu, EYELET CUTTER-CdeN93.0 Postcoital and contact bleedingNew Medication:Esperanza 0.35 mg - 1 by mouth every dayF17.219 Nicotine dependence, cigarettes, with unspecified nicotine-induced disordersNew Medication:Nicotine Polacrilex 4 mg - Use 1 lozenge every 1-2 hours as needed, try to reduce the total weekly number used over a 6 week period Functional Status Description No Information Available Mental Status Description No Information Available Referrals Description No Information Available
--- OUTSIDE RECORDS SUMMARY | 2019-10-28 16:46 | XMS REPORT | Continuity of Care Document ---
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 Problems Active Problems Provider Date Tobacco user [...] F17.219 Elinor Sanz, 2019 every 1-2 hours CIGAR HEAD PUNCHER-Cde 4mg Lozenges as needed, try to reduce the total weekly number used over a 6 week period Esperanza 1 by mouth every 28tabs N93.0 Elinor Sanz, 10/21/2019 0.35mg Tablets day [employer] P[employer]CHER-Cde GNP Nicotine Mini take one every 81units F17.210 Binh Etienne NP 01/10/2019 2mg 4-6 hours Lozenges Lorazepam one tablet once 30tabs Binh Etienne NP 06/07/2018 0.5mg daily as needed Tablets Lamotrigine take 1 tablet by 90tamisty Etienne NP 03/24/2018 200mg mouth every day [...] Mass Index) 27.2 kg/m2 Last Menstrual Period [id number] Results Test Acquired Facility Test Result H/L Range Note Date HIV 1&2 p24 10/17/2019 [facility] HIV 4th Nonreactive Nonreactive Screen [address] [place] [address] [phone] Hepatitis C 10/17/2019 [facility] HCV Index 0.01 s/c Antibody [address] [place] [address] [phone] Hepatitis C Antibody Negative Negative Laboratory test 10/17/2019 [facility] Syphillis Igg Negative Negative finding [address] W/[place] [address] [phone] GC/Chlamydia 10/17/2019 [facility] GCCHL (SEE NOTE) 1 Amplified Rna [address] [place] [address] [phone] Chlamydia trachomatis Alicia Negative Negative Neisseria gonorrhoeae (GC) Alicia Negative Negative Cytology 06/10/2019 [facility] Cytology SEE RESULT BELOW [address] [place], [place] [address] [phone] PDFReport SEE IMAGE 1 As with all diagnostic procedures, the laboratory results obtained should be used in conjunction with other clinical information available to the physician, including confirmation by another method, as applicable. 2 SEE RESULT BELOW Name: TORO CHU : [address]: Yelena Ma MD Acct: [id number] Unit: [id number] AGE: 48 Location: [facility] Re06/10/19 SEX: F Status: REG REF SPEC: [id number] CARMEN: 06/10/19-[address]: Yelena Ma MD REQ: [id number] RECD: 06/13/19 STATUS: ELIZABETH HEWITT DR: Binh Etienne PATIENT SERVICES CLERK _ ORDERED: TP IMAGE ANALYS, HPV/Thin Prep COMMENTS: [id number] FINAL DIAGNOSIS Negative for Intraepithelial lesion or [...] CONTINUED ON NEXT PAGE DEPARTMENT OF PATHOLOGY, [facility] [employer] [address] [place] [address] Bi Hurt M.D. Director [facility] # [id number] CYTOLOGY PATIENT INFORMATION Patient Information: HPV: High risk HPV RNA testing regardless of pap results. Actual Specimen Date: 06/10/19 LMP If Unknown: irregular Date of Last Specimen: 02/17/17 Other Pertinent History: IUD Signed by and Reported on: CAMPOS Arroyo(ASCP) [id number] This Pap test was evaluated with the assistance of the PagerPrep Test Imaging System. Due to cytologic findings at the quality control head microscope, comprehensive manual rescreening by a School Psychologist Assistant may be required. The Pap Smear is [...] years. END OF REPORT DEPARTMENT OF PATHOLOGY, [facility] [employer] [place], [place] [address] Bi Hurt M.D. Director [facility] # [id number] Procedures Date Code Description Status 10/21/2019 65585 Remove Intrauterine Device Completed 10/18/2019 53143113 Mammogram Completed 10/23/2017 [id number] Mammogram Completed 01/22/2015 [id number] Mammogram Completed Medical Devices Description No Information Available Encounters Type Date Location Provider Dx Diagnosis Office Visit 10/17/2019 [facility] Elinor Dueñaskins, N93.0 Postcoital and 11:00a [facility] CIG[employer] HEAD PUNCHER-Cde contact bleeding F17.219 Nicotine dependence, cigarettes, w unsp disorders Z12.31 Encntr screen mammogram for malignant neoplasm of breast Z11.3 Encntr screen for infections w sexl mode of transmiss Assessments Date Code Description Provider 10/21/2019 N93.0 Postcoital and contact bleeding Elinor Dueñaskins, CIGAR HEAD PUNCHER-Cde 10/21/2019 F17.219 Nicotine dependence, cigarettes, with Elinor Dueñaskins, CIG[employer] HEAD PUNCHER- Cde unspecified nicotine-induced disorders 10/17/2019 N93.0 Postcoital and contact bleeding Elinor Sanz, CIG[employer] HEAD PUNCHER-Cde 10/17/2019 F17.219 Nicotine dependence, cigarettes, with Elinor Sanz, CIG[employer] HEAD PUNCHER- Cde unspecified nicotine-induced disorders 10/17/2019 Z12.31 Encounter for screening mammogram for Elinor Sanz, CIG[employer] HEAD PUNCHER- Cde malignant neoplasm of breast 10/17/2019 Z11.3 Encounter for screening for infections with Elinor Dueñaskins, CIG[employer] HEAD PUNCHER-Cde a predominantly sexual mode of transmission Plan of Treatment 10/21/2019 - Elinor Sanz CIGAR HEAD PUNCHER-CdeN93.0 Postcoital and contact bleedingNew Medication:Esperanza 0.35 mg [...]
--- OUTSIDE RECORDS SUMMARY | 2019-10-28 16:46 | XMS REPORT | Continuity of Care Document ---
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 Allergies, Adverse Reactions, Alerts Active Allergies Reaction Severity Comments Date Sulfa Antibiotics Anaphylaxis Severe 07/31/2015 Medications Active Medications SIG Qnty Indications Ordering Provider Date GNP Nicotine Mini take one every 81units F17.210 Binh Etienne NP 01/10/2019 2mg 4-6 hours Lozenges Lorazepam one tablet once 30tabs Binh Etienne NP 06/07/2018 0.5mg daily as needed Tablets Lamotrigine take 1 tablet by 90tabs Binh Etienne NP 03/24/2018 200mg mouth every day Tablets Aspir-81 1 by mouth every Unknown 81mg Tablets day DR Quetiapine Fumarate 1/2-1 tablet 30tabs Binh Etienne NP every night at 50mg Tablets bedtime as needed Gabapentin Take 2 Capsules Unknown 300mg By Mouth Two Capsules Times Daily Vitamin D-1000 take one Unknown Maximum Strength capsule/tablet daily by mouth 1000Unit Tablets Mirena (52 MG) Unknown 20mcg/24HR IUD Medications Administered in Office Medication SIG Qnty Indications Ordering Provider Date PPD Injection Nurse Visit A 07/28/2017 PPD Injection Binh Etienne NP 06/24/2017 PPD Injection Nurse Visit C 02/26/2015 Immunizations Description No Information Available Vital Signs Date Vital Result Comment 10/17/2019 11:02am Height 63.5 inches 5'3.50" Weight 156.00 lb Heart Rate 72 /min BP Systolic 112 mmHg BP Diastolic 73 mmHg O2 % BldC Oximetry 97 % BMI (Body Mass Index) 27.2 kg/m2 Last Menstrual Period [id number] 01/10/2019 2:07pm Height 63.5 inches 5'3.50" Weight 151.00 lb Heart Rate 72 /min BP Systolic Sitting 107 mmHg BP Diastolic Sitting 76 mmHg Body Temperature 97.2 F O2 % BldC Oximetry 97 % BMI (Body Mass Index) 26.3 kg/m2 Results Test Acquired Date Facility Test Result H/L Range Note Cytology 06/10/2019 [facility] Cytology SEE RESULT BELOW [address] [place] [address] [phone] PDFReport SEE IMAGE 1 SEE RESULT BELOW Name: TORO CHU : [address]: Yelena Ma MD Acct: [id number] Unit: [id number] AGE: 48 Location: [facility] Re06/10/19 SEX: F Status: REG REF SPEC: [id number] CARMEN: 06/10/19-1515 [facility] DR: Yelena Ma MD REQ: [id number] RECD: 06/13/19-2709 STATUS: ELIZABETH HEWITT DR: Binh Etienne GILL BOX FIXER _ ORDERED: TP IMAGE ANALYS, HPV/Thin Prep COMMENTS: [id number] FINAL DIAGNOSIS Negative for Intraepithelial lesion or Malignancy HPV RESULTS Date Time Test Result Flag (u) Normal Range 06/10/19 1515 HPV SHANE Negative Negative The high-risk HPV types detected by the assay include: 16, 18, 31, 33, 35, 39, 45, 51, 52, 56, 58, 59, 66, and 68. SPECIMEN(S) RECEIVED A. Ectocervical/Endocervical CYTOLOGY ADEQUACY Specimen Adequacy: Satisfactory of evaluation Transformation zone component identified CONTINUED ON NEXT PAGE DEPARTMENT OF PATHOLOGY, [address] [place] [address] Bi Hurt M.D. Director [facility] # [id number] CYTOLOGY PATIENT INFORMATION Patient Information: HPV: High risk HPV RNA testing regardless of pap results. Actual Specimen Date: 06/10/19 LMP If Unknown: irregular Date of Last Specimen: 02/17/17 Other Pertinent History: IUD Signed by and Reported on: CAMPOS Arroyo(ASCP) 4309 This Pap test was evaluated with the assistance of the ThinPrep Test Imaging System. Due to cytologic findings at the yard operator microscope, comprehensive manual rescreening by a [employer] may be required. The Pap Smear is [...] years. END OF REPORT DEPARTMENT OF PATHOLOGY, [address] [place] [address] Bi Hurt M.D. Director [facility] # [id number] Procedures Date Code Description Status 10/23/2017 [id number] Mammogram Completed 01/22/2015 [id number] Mammogram Completed Medical Devices Description No Information Available Encounters Description No Information Available Assessments Date Code Description Provider 10/17/2019 N93.0 Postcoital and contact bleeding ILIANA Yun-Samira 10/17/2019 F17.219 Nicotine dependence, cigarettes, with ILIANA Yun- Cdaubrey unspecified nicotine-induced disorders 10/17/2019 Z12.31 Encounter for screening mammogram for Elinor ILIANA Sanz- Samira malignant neoplasm of breast 10/17/2019 Z11.3 Encounter for screening for infections with ILIANA Yun-Samira a predominantly sexual mode of transmission Plan of Treatment 10/17/2019 - Alanna YuneN93.0 Postcoital and contact dpzprhwfX13.219 Nicotine dependence, cigarettes, with unspecified nicotine-induced fswhreedaV97.31 Encounter for screening mammogram for malignant neoplasm of breastNew Xrays:Mammogram Screening Yaw, Ordered: 10/17/19Comments:The radiologist will send you a letter with the results of your mammogram. Please call us if you have any additional quesions or concerns about the test or results.Z11.3 Encounter for screening for infections with a predominantly sexual mode of transmissionNew Labs:GC/Chlamydia Amplified Rna, Ordered: Functional Status Description No Information Available Mental Status Description No Information Available Referrals Description No Information Available
[2019-10-28 17:00] VITALS: BP 138/73
[2019-10-28] MEDS ORDERED: Aspirin 81 mg CHEW TAB* 81 MG TAB.CHEW PO ONE (17:08)
--- NOTE | 2019-10-28 17:13 | UC ---
Cardiac HPI - HPI Summary HPI Summary: 48-year-old female presents with onset of midsternal chest pressure at approximately 1:30 this afternoon while driving her car home from [facility]. States when she got home she tried to lie down but had no improvement in her symptoms and started developing a headache as well. States she felt a little sweaty and then a couple hours ago developed some numbness in the left arm. States she was having some shortness of breath which she described as not being able to get a full breath. States now she is having the chest pain intermittently but the left arm numbness is persistent. Takes asprin 81 mg daily. Last taken this morning. Denies fever, chills, cough, abdominal pain, nausea, or vomiting. - History of Current Complaint Chief Complaint: UCChestPain Stated Complaint: CHEST PAIN Time Seen by Provider: 10/28/19 16:54 Hx Obtained From: Patient Hx Last Menstrual Period: Pain Intensity: 4 - Allergy/Home Medications Allergies/Adverse Reactions: Allergies Allergy/AdvReac Type Severity Reaction Status Date / Time Sulfa (Sulfonamide Allergy Anaphylatic Verified 10/28/19 17:00 Antibiotics) Shock Home Medications: Home Medications Lamictal TAB(*) 200 mg PO DAILY 09/01/14 [History Confirmed 10/23/16] Oxycarbenzamine 150 mg PO BID 09/01/14 [History Confirmed 10/28/19] Aspirin 81 mg CHEW TAB* [Aspirin Low Dose TAB*] 81 mg PO DAILY 10/28/19 [ History Confirmed 10/28/19] PMH/Surg Hx/FS Hx/Imm Hx Cardiovascular History: Other - MVP Other History Of: Negative For: Anticoagulant Therapy - Surgical History Surgical History: Yes Surgery Procedure, Year, and Place: TONSILLECTOMY. PRECANCEROUS GROWTH ON HIP REMOVED AGE 16 - Family History Family History: Denies significant FMH - Social History Occupation: Employed Full-time Lives: With Family Alcohol Use: None Alcohol Amount: former etoh overuse, "no addiction" per pt. Substance Use Type: None Smoking Status (MU): Current Every Day Smoker Type: Cigarettes Amount Used/How Often: 1/2 PPD - Immunization History Most Recent Tetanus Shot: <5 YEARS ( OF 08/13/15) Review of Systems All Other Systems Reviewed And Are Negative: Yes Constitutional: Negative: Fever, Chills ENT: Negative: Sore Throat, Ear Ache, Nasal Discharge, Sinus Congestion, Sinus Pain/Tenderness Respiratory: Positive: Shortness Of Breath. Negative: Cough Cardiovascular: Positive: Chest Pain. Negative: Palpitations Gastrointestinal: Negative: Abdominal Pain, Vomiting, Nausea Genitourinary: Positive: Negative Musculoskeletal: Positive: Negative Neurological/Mental Status: Positive: Headache, Numbness Is Patient Immunocompromised?: No Physical Exam - Summary Physical Exam Summary: GENERAL APPEARANCE: Well developed, well nourished, alert and cooperative, and appears to be in no acute distress. EYES: PERRL, EOM intact. Vision is grossly intact. CARDIAC: Normal S1 and S2. No S3, S4 or murmurs. Rhythm is regular. There is no peripheral edema, cyanosis or pallor. Extremities are warm and well perfused. Capillary refill is less than 2 seconds. Peripheral pulses intact. LUNGS: Clear to auscultation without rales, rhonchi, wheezing or diminished breath sounds. ABDOMEN: Positive bowel sounds. Soft, nondistended, nontender. No guarding or rebound. No masses or hepatosplenomegally. MUSKULOSKELETAL: ROM intact to all extremities. No joint erythema or tenderness. Normal muscular development. Normal gait. NEUROLOGICAL: CN II-XII intact. Strength and sensation symmetric and intact throughout. Triage Information Reviewed: Yes Vital Signs: Initial Vital Signs Temp 98.9 F 10/28/19 16:57 Pulse 73 10/28/19 16:57 Resp 20 10/28/19 16:57 BP 138/73 10/28/19 16:57 Pulse Ox 99 10/28/19 16:57 Vital Signs Reviewed: Yes Diagnostics - EKG Cardiac Rate: NL - Rate 79 Cardiac Rhythm: Sinus: Normal Ectopy: None ST Segment: Normal Summary of EKG Findings: NSR at a rate of 79 with no ectopy, SANDER, or T-wave abnormalities noted. No previous studies available. - Assessment/Plan Course Of Treatment: 48-year-old female presents with onset of midsternal chest pressure at approximately 1:30 this afternoon while driving her car home from [facility]. States when she got home she tried to lie down but had no improvement in her symptoms and started developing a headache as well. States she felt a little sweaty and then a couple hours ago developed some numbness in the left arm. States she was having some shortness of breath which she described as not being able to get a full breath. States now she is having the chest pain intermittently but the left arm numbness is persistent. Takes asprin 81 mg daily. Last taken this morning. Denies fever, chills, cough, abdominal pain, nausea, or vomiting. Afebrile. Mildly hypertensive otherwise vital signs stable. Patient's exam was overall unremarkable. Twelve-lead EKG showed normal sinus rhythm at a rate of 79 without ectopy, ST elevation, or T-wave abnormalities. Discussed with the patient that despite the normal EKG I could not fully exclude a serious cause for her symptoms including a cardiac origin and have recommended that she be evaluated in the emergency room at this time with transport via EMS. Patient is agreeable to being evaluated in the emergency room however selecting to transport via private vehicle. The patient is clinically sober, free from distracting injury, appears to have insight and reasoning and in my judgment has capacity to make decisions. I have explained that I am concerned that her symptoms may be causes by a serious medical condition including a condition of cardiac origin and she verbalizes understanding of my concern. I have told the patient that despite her normal EKG I cannot fully exclude serious causes of her symptoms. I have told the patient if she chooses to transport via private vehicle she could have worsening of symptoms, become critically ill, suffer diability, be involved in a motor vehicle crash, and even possibly . The patient continues to decline transport via EMS and will be discharged with recommendation to go directly to the emergency room. She was given ASA 81 mg x 3 tabs prior to discharge. - Differential Diagnoses - Chest Pain Differential Diagnosis/HQI/PQRI: Acute MA, ACS, Aortic Aneurysm, Chest Wall, Lower Respiratory Infection, Pulmonary Embolism - Clinical Impression Provider Diagnosis: Acute chest pain Discharge ED - Sign-Out/Discharge Documenting (check all that apply): Patient Departure All imaging exams completed and their final reports reviewed: No Studies - Discharge Plan Condition: Stable Disposition: HOME-RECOMMEND TO ED Patient Education Materials: Chest Pain (ED) Forms: *Work Release Referrals: Binh Etienne, MARKER HAND [Primary Care Provider] - Additional Instructions: Your EKG in the clinic today was normal however I cannot fully rule out a serious cause for your symptoms at this time and I am recommending that you be evaluated in the emergency room at this time. Please go directly to the emergency room from here. - Billing Disposition and Condition Condition: STABLE Disposition: Home-Recommend to ED
== END 2019-10-28 17:20 | disposition home health service (06) ==
LOC: UCEAST 16:40
DX: R07.89 Other chest pain (principal); R20.0 Anesthesia of skin; R06.02 Shortness of breath; R51 Headache; I34.1 Nonrheumatic mitral (valve) prolapse; Z79.82 Long term (current) use of aspirin; Z88.2 Allergy status to sulfonamides; F17.210 Nicotine dependence, cigarettes, uncomplicated
CPT/HCPCS: 93005; 99202; A9270-GY; G0463